=== PATIENT | female | born 1990 | race Caucasian/White ===

== ENCOUNTER 2020-09-01 18:01 | Emergency (ER) | payer MEDICAID ==
[~2020-09-01] VITALS: Ht 162.6 cm; Wt 87.1 kg
[2020-09-01 18:18] VITALS: BP 134/88
--- NOTE | 2020-09-01 18:27 | NUR ---
PT ASKED TO WAIT IN LOBBY.
--- NOTE | 2020-09-01 18:27 | NUR ---
URINE SPECIMEN CUP GIVEN TO PATIENT
--- NOTE | 2020-09-01 18:40 | NUR ---
Patient ambulated to bed 12
--- NOTE | 2020-09-01 18:55 | NUR ---
30 y/o F BIB self from home with c/c hemopytsis. Patient A&Ox4, ambulatory, states bright red hemopytsis and bloody stools since last night. Patient also states abdominal discomfort x 1 week, low back pain x 2 weeks. Denies dysuria, bladder issues, urinary symptoms. Patient states Benadryl and Tylenol PM x 1 month and is concerned d/t risk of gastric ulcers. Patient is also requesting prescription refill for Trazodone. States RLQ 3/10, sharp/constant, non-radiating abdomen pain. VSS. Bowel sounds normoactive x 4 quadrants. Bed locked in lowest position, side rails x1 , call light in reach. PMH: Anxiety, bipolar d/o Meds: Trilepthal, benadryl NKA
--- NOTE | 2020-09-01 19:11 | NUR ---
Report and transfer of care endorsed to VIOLETTA Howard.
--- NOTE | 2020-09-01 19:11 | NUR ---
Received report from Chung SHIPLEY for continuity of care.
--- NOTE | 2020-09-01 19:52 | NUR ---
ROGELIO Sullivan at bedside for examination
[2020-09-01 20:29] LABS: BASOPHILS # (AUTO) 0.1 K/uL (0.00-0.22); BASOPHILS % (AUTO) 0.8 % (0.0-2.0); EOSINOPHILS # (AUTO) 0.3 K/uL (0-0.4); EOSINOPHILS % (AUTO) 3.5 % (0.0-4.0); HEMATOCRIT 38.7 % (36-48); HEMOGLOBIN 13.4 g/dL (12.0-16.0); LYMPHOCYTES # (AUTO) 3.5 K/uL (2.5-16.5); MEAN CORPUSCULAR HEMOGLOBIN 29 pg (27-31); MEAN CORPUSCULAR HGB CONC 35 g/dL (33-37); MEAN CORPUSCULAR VOLUME 84.8 fL (80-94); MONOCYTES # (AUTO) 0.7 K/uL (0.8-1.0); MONOCYTES % (AUTO) 6.8 % (1.7-9.3); NEUTROPHILS # (AUTO) 5.3 K/uL (1.8-7.7); NEUTROPHILS % (AUTO) 53.9 % (42.2-75.2); PLATELET COUNT (AUTO) 245 K/uL (140-450); RED BLOOD CELL COUNT(AUTO) 4.57 MIL/uL (4.20-5.40); RED CELL DISTRIBUTION WIDTH 12.2 % (11.6-13.7); WHITE BLOOD COUNT (AUTO) 9.9 K/uL (4.8-10.8)
[2020-09-01 21:04] LABS: ALBUMIN 4.8 g/dL (3.4-5.0); ANION GAP 13.9 (8-16); CARBON DIOXIDE 26.7 mmol/L (21-32); CREATININE 0.8 mg/dL (0.6-1.3); POTASSIUM 3.6 mmol/L (3.5-5.1); TOTAL BILIRUBIN 0.3 mg/dL (0.0-1.0)
[2020-09-01] MEDS ORDERED: TRAZ-343 PO (21:04)
[2020-09-01 21:13] VITALS: BP 129/89
--- NOTE | 2020-09-01 21:13 | NUR ---
Patient discharged with v/s stable. Written and verbal after care instructions given and explained. Patient alert, oriented and verbalized understanding of instructions. Ambulatory with steady gait. All questions addressed prior to discharge. ID band removed. Patient advised to follow up with PMD. Rx of trazadone given. Patient educated on indication of medication including possible reaction and side effects. Opportunity to ask questions provided and answered.
== END 2020-09-01 21:13 | disposition home or self-care (01) ==
LOC: MED 18:01
DX: R04.2 Hemoptysis (principal); Z76.0 Encounter for issue of repeat prescription; Z79.899 Other long term (current) drug therapy
CPT/HCPCS: 36415; 71045; 80053; 81002; 85025; 99284